=== PATIENT | female | born 1935 | race Hispanic/Latino ===

== ENCOUNTER 2017-06-17 20:00 | Inpatient (IN) | payer MEDICARE, BC ==
[2017-06-17 20:08] VITALS: BMI 26.3
[2017-06-17] MEDS ORDERED: TDAP Vaccine 0.5 mL Syr IM ONE (20:37)
--- NOTE | 2017-06-17 20:39 | ED PDOC ---
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 Patient stated she was picking up toys from the floor, when she tripped and fell down on concrete floor. Patient denies other complains.. Denies LOC, sob, cp, abdominal pain, dizziness, diplopia, KAY, dysarthria, dysphagia, weakness, paresthesias, or abnormal gait Time/Duration: Prior to Arrival Context: Home Past Medical History - Provider Review Nursing Documentation Reviewed: Yes - Cardiac Hx Hypertension: Yes Hx Pacemaker: No - Pulmonary Hx Respiratory Disorders: No - Neurological Hx Paralysis: No - HEENT Hx HEENT Disorder: No - Renal Hx Renal Disorder: No - Endocrine/Metabolic Hx Hypothyroidism: Yes - Hematological/Oncological Hx Blood Transfusions: No - Integumentary Hx Dermatological Disorder: No - Musculoskeletal/Rheumatological Hx Musculoskeletal Disorders: No - Gastrointestinal Hx Gastrointestinal Disorders: No - Genitourinary/Gynecological Hx Genitourinary Disorders: No - Psychiatric Hx Emotional Abuse: No Hx Physical Abuse: No Hx Substance Use: No - Anesthesia Hx Anesthesia Reactions: No Hx Malignant Hyperthermia: No - Suicidal Assessment Feels Threatened In Home Enviroment: No Family/Social History - Physician Review Nursing Documentation Reviewed: Yes Family/Social History: Other (non-contributory) Smoking Status: Never Smoked Hx Alcohol Use: No Hx Substance Use: No Allergies/Home Meds Allergies/Adverse Reactions: Allergies Penicillins Allergy (Verified 06/17/17 20:09) ITCHING Sulfa (Sulfonamide Antibiotics) Allergy (Verified 06/17/17 20:09) RASH Home Medications: Home Meds Medication Instructions Recorded Confirmed Ezetimibe [Zetia] 10 mg PO DAILY 09/22/14 06/17/17 Levothyroxine [Synthroid] 75 mcg PO DAILY 09/22/14 06/17/17 Losartan/Hydrochlorothiazide 1 tab PO DAILY 09/22/14 06/17/17 [Losartan-Hctz 50-12.5 mg Tab] Review of Systems - Review of Systems Constitutional: Normal. absent: Fatigue, Weight Change, Fevers Eyes: Normal. absent: Vision Changes, Photophobia, Eye Pain ENT: Normal Respiratory: Normal. absent: SOB, Cough Cardiovascular: Normal. absent: Chest Pain, Palpitations, Edema, Calf Pain, HUITRON , Orthopnea, Syncope Gastrointestinal: Normal. absent: Abdominal Pain, Nausea, Vomiting Genitourinary Female: Normal. absent: Dysuria, Frequency, Hematuria Musculoskeletal: Normal Skin: Laceration (Forehead laceration, head trauma) Neurological: Normal. absent: Headache, Dizziness, Focal Weakness, Gait Changes , Speech Changes, Facial Droop, Disequilibrium, Seizure Endocrine: Normal Hemo/Lymphatic: Normal Psychiatric: Normal Physical Exam Vital Signs Temp Pulse Resp BP Pulse Ox 06/17/17 22:12 100 H 20 179/89 H 99 06/17/17 20:10 98.6 F 98 H 20 204/74 H 99 Temperature: Afebrile Blood Pressure: Normal Pulse: Regular Respiratory Rate: Normal Appearance: Positive for: Well-Appearing, Non-Toxic, Comfortable Pain Distress: None Mental Status: Positive for: Alert and Oriented X 3 - Systems Exam Head: Present: Normocephalic, Laceration ((+) right forehead laceration, irregular, stellar shape, approx 5 cm), Other (no raccoon sign. No mcghee sign) Pupils: Present: PERRL, Other (no hyphema) Extroacular Muscles: Present: EOMI. No: Entrapment Conjunctiva: Present: Normal Ears: Present: Normal, NORMAL TM, Normal Canal, Other (no hemotympanum). No: Erythema, TM Bulging, Fluid, TM Perf Mouth: Present: Moist Mucous Membranes Pharnyx: Present: Normal. No: ERYTHEMA, EXUDATE Nose (External): Present: Atraumatic Nose (Internal): Present: Normal Inspection Neck: Present: Normal Range of Motion Respiratory/Chest: Present: Clear to Auscultation, Good Air Exchange. No: Respiratory Distress, Accessory Muscle Use, Tender to Palpation Cardiovascular: Present: Regular Rate and Rhythm, Normal S1, S2. No: Murmurs Abdomen: Present: Normal Bowel Sounds. No: Tenderness, Distention, Peritoneal Signs Back: Present: Normal Inspection Upper Extremity: Present: Normal Inspection, Normal ROM, NORMAL PULSES, Neurovascularly Intact, Capillary Refill < 2s. No: Cyanosis, Edema Lower Extremity: Present: Normal Inspection, NORMAL PULSES, Normal ROM, Capillary Refill < 2 s. No: Edema, CALF TENDERNESS Neurological: Present: GCS=15, CN II-XII Intact, Speech Normal, Motor Func Grossly Intact, Normal Sensory Function, Normal Cerebellar Funct, Gait Normal, Memory Normal Skin: Present: Warm, Dry, Normal Color. No: Rashes Psychiatric: Present: Alert, Oriented x 3, Normal Insight, Normal Concentration Medical Decision Making ED Course and Treatment: 06/17/17 21:[address] Davis covering for Dr. Zambrano regarding CT scan demonstrating small bleed She recommended to call Neurosurgery, and Dr. Steve. She agrees with observation for Telemetry 06/17/17 22:[address] Neal Neuro surgeon. He stated he looked at the images and he stated patient does not need neurosurgery intervention 06/17/17 22:15 Dr. Davis called me back. She stated she spoke with Dr. Steve. She is recommending ICU admission with Neuro check as protocol. I spoke with Dr. Garcia regarding CT scan, and Dr. Davis recommendation. He agrees with ICU admission. Re-evaluation Time: 21:59 Reassessment Condition: Re-examined, Improving,but remains with symptoms - RAD Interpretation Narrative RAD Interpretations (Text): 06/17/17 22:32 [facility] Division of Radiology [address] [place] [address] Tel. no. Patient Name: ERAN DELAROSA Pt. Address: [address] [place] [address] Rec #: [id number] [place] [address]: Chayito Forte PA-C Pt Order Location: ED : 1935 Female Age: 82 Order #: [id number] Reason for exam: head injury CT Scan HEAD W/O CONTRAST Exam Date: 06/17/17 This imaging exam was performed at [facility] EXAM: CT Head Without Intravenous Contrast CLINICAL HISTORY: 82 years old, female; Injury or trauma; Fall; Initial encounter; Concussion / head injury TECHNIQUE: Axial computed tomography images of the head/brain without intravenous contrast. All CT scans at this facility use one or more dose reduction techniques, viz.: automated exposure control; ma/kV adjustment per patient size (including targeted exams where dose is matched to indication; i.e. head); or iterative reconstruction technique. COMPARISON: No relevant prior studies available. FINDINGS: Brain: Mild atrophy. Small subarachnoid hemorrhage along LEFT frontal region. No mass. Few scattered foci of decreased attenuation within periventricular/subcortical white matter. No definite edema. Midline shift: None. Ventricles: No hydrocephalus. Bones/joints: No acute fracture. Soft tissues: RIGHT frontal soft tissue swelling. Vasculature: Atherosclerotic disease of intracranial arteries. Sinuses: No acute sinusitis. Mastoid air cells: No mastoid effusion. Orbits: Unremarkable as visualized. IMPRESSION: 1. Intracranial hemorrhage as above. 2. Nonspecific white matter changes. 3. Incidental/non-acute findings are described above. Dictated By: Jason Mccartney MD Dictated Date/Time: 06/17/172132 Signed By: Jason Mccartney MD Date Signed: 2132 Transcribed By: CHARLES Transcribe Date/Time : 06/17/172132 [id number] Radiology Orders: 06/17/17 20:37 HEAD W/O CONTRAST [CT] Stat - Medication Orders Current Medication Orders: Discontinued Medications Clindamycin HCl (Cleocin) 300 mg PO STAT STA PRN Reason: Protocol Stop: 06/17/17 21:37 Last Admin: 06/17/17 21:48 Dose: 300 mg Ezetimibe (Zetia) 10 mg PO DAILY [facility] Last Admin: 06/18/17 10:40 Dose: 10 mg Famotidine (Pepcid) 20 mg PO 1000,2200 [facility] Last Admin: 06/18/17 21:55 Dose: 20 mg Hydralazine HCl (Apresoline) 10 mg IVP Q6 PRN PRN Reason: Systolic Blood Pressure Hydrochlorothiazide (Microzide) 12.5 mg PO DAILY [facility] Levothyroxine Sodium (Synthroid) 75 mcg PO DAILY [facility] Last Admin: 06/18/17 10:40 Dose: 75 mcg Losartan Potassium (Cozaar) 50 mg PO DAILY [facility] Tetanus/Reduced Diphtheria/Acell Pertussis (Boostrix Vaccine Inj) 0.5 ml IM .ONCE ONE Stop: 06/17/17 20:38 Last Admin: 06/17/17 21:38 Dose: 0.5 ml [facility] Immunization Data Document 06/17/17 21:38 OCS (Rec: 06/17/17 21:38 [facility]-[id number]) Immunization Data Vaccine Lot Number [id number] Vaccine Expiration Date 05/31/19 - Procedure PROCEDURE NOTE (Text): 06/17/17 21:36 PROCEDURE: LACERATION REPAIR Performed by the emergency provider Location: right forehead Length: 3.5 cm Description: irregular wound edges, no foreign bodies} Distal CMS: Normal. No deficits. Neurovascularly intact. Anesthesia: Lidocaine 1% with Epi, approx. 1 cc Preparation: The wound was cleaned with NS and Betadyne. The area was prepped and draped in the usual sterile fashion. Exploration: The wound was explored and no foreign bodies were found. Procedure: The wound was closed with Chromic Gut, 5-0 interrupted. There was good approximation. In total, 7 sutures were used. Post-Procedure: Good closure and hemostasis. The patient tolerated the procedure well and there were no complications. CSM remains intact. Post procedure dressing applied. NIHSS Scale ([place]) Time Performed: 21:51 - How Severe is the Stoke Baseline Level of Consciousness: 0=Alert LOC to Questions: 0=Both comments correct LOC to commands: 0=Obeys both correctly Best Gaze: 0=Normal Visual: 0=No visual loss Facial: 0=Normal Motor Arm - Left: 0=No drift Motor Arm - Right: 0=No drift Motor Leg - Left: 0=No drift Motor Leg - Right: 0=No drift Limb Ataxia: 0=Absent Sensory: 0=Normal Best Language: 0=No aphasia Dysarthia: 0=Normal articulation Extinction & Inattention (Neglect): 0=Normal, no object Score: 0 Risk Level: No Stroke Risk Disposition/Present on Arrival - Present on Arrival Any Indicators Present on Arrival: No History of DVT/PE: No History of Uncontrolled Diabetes: No Urinary Catheter: No History of Decub. Ulcer: No History Surgical Site Infection Following: None - Disposition Have Diagnosis and Disposition been Completed?: Yes Diagnosis: Traumatic injury of head, Facial laceration, Traumatic hematoma of forehead, Traumatic subarachnoid hemorrhage Disposition: HOSPITALIZED Disposition Time: 22:12 Patient Plan: Discharge Condition: GOOD
--- NOTE | 2017-06-17 21:33 | CT ---
EXAM: CT Head Without Intravenous Contrast CLINICAL HISTORY: 82 years old, female; Injury or trauma; Fall; Initial encounter; Concussion / head injury TECHNIQUE: Axial computed tomography images of the head/brain without intravenous contrast. All CT scans at this facility use one or more dose reduction techniques, viz.: automated exposure control; ma/kV adjustment per patient size (including targeted exams where dose is matched to indication; i.e. head); or iterative reconstruction technique. COMPARISON: No relevant prior studies available. FINDINGS: Brain: Mild atrophy. Small subarachnoid hemorrhage along LEFT frontal region. No mass. Few scattered foci of decreased attenuation within periventricular/subcortical white matter. No definite edema. Midline shift: None. Ventricles: No hydrocephalus. Bones/joints: No acute fracture. Soft tissues: RIGHT frontal soft tissue swelling. Vasculature: Atherosclerotic disease of intracranial arteries. Sinuses: No acute sinusitis. Mastoid air cells: No mastoid effusion. Orbits: Unremarkable as visualized. IMPRESSION: 1. Intracranial hemorrhage as above. 2. Nonspecific white matter changes. 3. Incidental/non-acute findings are described above.
--- NOTE | 2017-06-17 22:58 | CP.PCM.CON ---
<Namia Bass - Last Filed: 06/18/17 00:18> History of Present Illness - History of Present Illness History of Present Illness: ICU Consult Note Reason for consult: intracranial bleed This is an 82Y F with PMH HTN, HLD and hypothyroidism who came to ED for fall. Patient reports she was putting away her great-granddaughter's toys in her garage where she then stumbled and fell forward. She hit the R side of her forehead on the concrete. She did not lose consciousness and her neighbor called the ambulance right away. At the time, patient denies any vision changes , seizure like activity, tongue biting, dizziness, headache, numbness/tingling or weakness. She was found to have a 3.5cm laceration in the ED on her R forehead which was repaired. Her head CT showed small L frontal subarachnoid hemorrhage. Patient denies CP, SOB, n/v/d, fever, chills, pain, dysuria or hematuria. PMH: HTN, HLD and hypothyroidism PSH: R shoulder arthroscopy Home meds: Zetia, HCTZ, Losartan, Synthroid, ASA All: Penicillin- itching, Sulfa- rash SH: Denies tobacco, EtOH or drug use. Lives with and takes care of herself. Does not need walker and is able to drive FH: non-contributory PMD: Dr. Zambarno Review of Systems - Constitutional Constitutional: absent: Chills, Fever - EENT Eyes: absent: Change in Vision, Loss of Vision Ears: absent: Disequilibrium, Dizziness Nose/Mouth/Throat: absent: Dysphagia, Odynophagia - Cardiovascular Cardiovascular: absent: Chest Pain, Dyspnea, Leg Edema, Syncope - Respiratory Respiratory: absent: Cough, Dyspnea - Gastrointestinal Gastrointestinal: absent: Abdominal Pain, Change in Bowel Habits - Genitourinary Genitourinary: absent: Change in Urinary Stream, Dysuria, Hematuria - Musculoskeletal Musculoskeletal: absent: Arthralgias, Myalgias, Neck Pain, Numbness, Tingling - Integumentary Integumentary: absent: Change in Hair, Change in Nails - Neurological Neurological: absent: Confusion, Dizziness, Numbness, Focal Weakness, Frequent Falls, Sensory Deficit, Syncope, Tremor, Weakness - Psychiatric Psychiatric: absent: Anxiety, Depression Past Patient History - Past Social History Smoking Status: Never Smoked Alcohol: None Drugs: Denies Home Situation {Lives}: With Family - CARDIAC Hx Hypertension: Yes Hx Pacemaker: No - PULMONARY Hx Respiratory Disorders: No - NEUROLOGICAL Hx Paralysis: No - HEENT Hx HEENT Problems: No - RENAL Hx Chronic Kidney Disease: No - ENDOCRINE/METABOLIC Hx Hypothyroidism: Yes - HEMATOLOGICAL/ONCOLOGICAL Hx Blood Transfusions: No - INTEGUMENTARY Hx Dermatological Problems: No - MUSCULOSKELETAL/RHEUMATOLOGICAL Hx Musculoskeletal Disorders: No - GASTROINTESTINAL Hx Gastrointestinal Disorders: No - GENITOURINARY/GYNECOLOGICAL Hx Genitourinary Disorders: No - PSYCHIATRIC Hx Emotional Abuse: No Hx Physical Abuse: No Hx Substance Use: No - SURGICAL HISTORY Hx Surgeries: Yes - ANESTHESIA Hx Anesthesia Reactions: No Hx Malignant Hyperthermia: No Meds Allergies/Adverse Reactions: Allergies Allergy/AdvReac Type Severity Reaction Status Date / Time Penicillins Allergy ITCHING Verified 06/17/17 20:09 Sulfa (Sulfonamide Allergy RASH Verified 06/17/17 20:09 Antibiotics) - Medications Medications: Current Medications Ezetimibe (Zetia) 10 mg PO DAILY [facility] Hydralazine HCl (Apresoline) 10 mg IVP Q6 PRN PRN Reason: Systolic Blood Pressure Hydrochlorothiazide (Microzide) 12.5 mg PO DAILY [facility] Levothyroxine Sodium (Synthroid) 75 mcg PO DAILY I[facility] Losartan Potassium (Cozaar) 50 mg PO DAILY I[facility] Physical Exam - Constitutional Appears: No Acute Distress - Head Exam Head Exam: NORMOCEPHALIC Additional comments: R forehead laceration with sutures in place- clean and dry with underlying hematoma - Eye Exam Eye Exam: EOMI, Normal appearance, PERRL Pupil Exam: NORMAL ACCOMODATION, PERRL - ENT Exam ENT Exam: Mucous Membranes Moist - Neck Exam Neck exam: Positive for: Normal Inspection - Respiratory Exam Respiratory Exam: Clear to Auscultation Bilateral, NORMAL BREATHING PATTERN. absent: Rales, Rhonchi, Wheezes - Cardiovascular Exam Cardiovascular Exam: REGULAR RHYTHM, +S1, +S2. absent: Gallop, Rubs, Systolic Murmur - GI/Abdominal Exam GI & Abdominal Exam: Normal Bowel Sounds, Soft. absent: Guarding, Hernia, Rebound, Rigid, Tenderness - Extremities Exam Extremities exam: Positive for: normal inspection. Negative for: calf tenderness, pedal edema - Neurological Exam Neurological exam: Alert, CN II-XII Intact, Normal Gait, Oriented x3 - Psychiatric Exam Psychiatric exam: Normal Affect, Normal Mood - Skin Skin Exam: Dry, Erythema (on R forehead ), Normal Color, Warm Results - Vital Signs Recent Vital Signs: Last Vital Signs Temp 98.6 F 06/17/17 20:10 Pulse 100 H 06/17/17 22:12 Resp 20 06/17/17 22:12 BP 179/89 H 06/17/17 22:12 Pulse Ox 99 06/17/17 22:12 - Labs Result Diagrams: 06/17/17 23:14 06/17/17 23:14 Assessment & Plan - Assessment and Plan (Free Text) Assessment: This is an 82Y F with PMH HTN, HLD and hypothyroidism who came to ED for mechanical fall found to have small L frontal subarachnoid hemorrhage. Plan: Neuro: Pt neurologically stable at this time Neuro consulted Neurosurgery consulted Neuro checks Hold anticoagulants Seizure precaution CV: Maintain BP in 160s Hydralazine prn SBP>180 Hold home antihypertensives Resp: Pt comfortably on room air Maintain SpO2>90% GI: Heart healthy Diet Nephro: Will continue to monitor electrolytes and replace as needed Heme: Hgb stable - will continue to monitor ID: Afebrile, no leukocytosis U/A pending Endo: Maintain euglycemia GI ppx: Pepcid DVT ppx: SCDs Case seen, discussed and reviewed with attending. Memo Bass PGY2 - Date & Time Date: 06/18/17 Time: 00:41 <Remy Garcia Q - Last Filed: 06/18/17 03:25> Meds - Medications Medications: Current Medications Ezetimibe (Zetia) 10 mg PO DAILY [facility] Famotidine (Pepcid) 20 mg PO 1000,2200 [facility] Hydralazine HCl (Apresoline) 10 mg IVP Q6 PRN PRN Reason: Systolic Blood Pressure Hydrochlorothiazide (Microzide) 12.5 mg PO DAILY [facility] Levothyroxine Sodium (Synthroid) 75 mcg PO DAILY [facility] Losartan Potassium (Cozaar) 50 mg PO DAILY I[facility] Results - Vital Signs Recent Vital Signs: Last Vital Signs Temp 98.0 F 06/18/17 00:15 Pulse 93 H 06/18/17 00:15 Resp 21 06/18/17 00:15 BP 157/76 H 06/18/17 00:15 Pulse Ox 99 06/17/17 22:12 - Labs Result Diagrams: 06/17/17 23:14 06/17/17 23:14 Labs: Laboratory Results - last 24 hr 06/17/17 06/17/17 06/17/17 23:14 23:14 23:14 WBC 11.0 D RBC 4.40 Hgb 13.7 Hct 39.8 MCV 90.5 MCH 31.1 MCHC 34.4 RDW 13.1 Plt Count 186 MPV 8.7 Gran % 72.5 H Lymph % (Auto) 19.6 L Harris % (Auto) 6.3 H Eos % (Auto) 1.1 L Baso % (Auto) 0.5 Gran # 7.97 H Lymph # 2.2 Harris # 0.7 H Eos # 0.1 Baso # 0.06 PT 11.2 INR 1.04 APTT 28.5 Sodium 140 Potassium 3.9 Chloride 103 Carbon Dioxide 27 Anion Gap 14 BUN 16 Creatinine 0.7 Est GFR ( Amer) > 60 Est GFR (Non-Af Amer) > 60 Random Glucose 151 H Calcium 9.8 Total Bilirubin 0.8 AST 53 H ALT 46 Alkaline Phosphatase 197 H Lactate Dehydrogenase 772 H Total Creatine Kinase 244 H CK-MB (CK-2) 2.9 CK-MB (CK-2) % Cancelled Troponin I 0.02 Total Protein 8.4 H Albumin 4.7 Globulin 3.8 Albumin/Globulin Ratio 1.2 Attending/Attestation - Attestation I have personally seen and examined this patient.: Yes I have fully participated in the care of the patient.: Yes I have reviewed all pertinent clinical information: Yes Notes (Text): 06/18/17 03:20 I agree with the above mentioned note and exam by the resident with the addition /exception of the followin82 y/o female presented to the ED after mechanical slip and fall with head trauma. She denies any loss of consciousness, headache, dizziness or light headedness prior to her fall. Patient neurologically intact without any focal defecits in the ED. Neurochecks Maintain SBP around 160; avoid hyper/hypotension case discussed with Dr. Koo in the ED all labs and images available reviewed personally; SAH barely noticeable on initial CT total time of care: 40 minutes
[2017-06-17 23:26] LABS: BASO # 0.06 K/mm3 (0.0-2.0); BASO % 0.5 % (0.0-3.0); EOS # 0.1 (0.0-0.7); EOS % 1.1 % (1.5-5.0); GRAN # 7.97 (1.4-6.5); GRAN % 72.5 % (50.0-68.0); HEMATOCRIT 39.8 % (36.0-48.0); LYMPH # 2.2 (1.2-3.4); LYMPH % 19.6 % (22.0-35.0); MEAN CELL VOLUME 90.5 fl (80.0-105.0); MEAN CORPUSCULAR HEMOGLOBIN 31.1 pg (25.0-35.0); MEAN CORPUSCULAR HGB CONC 34.4 g/dl (31.0-37.0); MEAN PLATELET VOLUME 8.7 fl (7.0-11.0); MONO # 0.7 (0.1-0.6); MONO % 6.3 % (1.0-6.0); RED CELL DISTRIBUTION WIDTH 13.1 % (11.5-14.5)
[2017-06-17 23:33] LABS: ALB/GLOB RATIO 1.2 (1.1-1.8); ALKALINE PHOSPHATASE 197 U/L (38-126); ALT/SGPT 46 U/L (7-56); AST/SGOT 53 U/L (14-36); BILIRUBIN,TOTAL 0.8 mg/dL (0.2-1.3); BLOOD UREA NITROGEN 16 mg/dL (7-21); CALCIUM 9.8 mg/dL (8.4-10.5); CARBON DIOXIDE 27 mmol/L (21-33); CHLORIDE 103 mmol/L (98-107); GFR AFRICAN-AMERICAN > 60; GLUCOSE,RANDOM 151 mg/dL (70-110); INR 1.04 (0.93-1.08); PARTIAL THROMBOPLASTIN TIME 28.5 Seconds (23.7-30.8); POTASSIUM 3.9 mmol/L (3.6-5.0); SODIUM 140 mmol/L (132-148); TOTAL PROTEIN 8.4 g/dL (5.8-8.3)
[2017-06-17 23:44] LABS: TROPONIN I 0.02 ng/mL
--- NOTE | 2017-06-18 08:48 | CARD ---
APPROVED REPORT EKG Measurement Heart [id number] <Conclusion> Normal sinus rhythm Possible septal FL, age unknown, new since 09/29/14 Prolonged QTc
[2017-06-18] MEDS ORDERED: Levothyroxine 75 MCG TAB PO SCH (10:00)
[2017-06-18] MEDS ORDERED: Non Formulary Medication (Losartan/Hydrochlorothiazide [Losartan-Hctz 50-12.5 Mg Tab] 1 TA PO SCH (10:00)
--- NOTE | 2017-06-18 10:53 | CP.CCUPN ---
CCU Subjective - Physician Review Events Since Last Encounter (Free Text): 06/18/17 10:51 No acute events overnight. Mental status intact without deficits CCU Objective - Vital Signs / Intake & Output Vital Signs (Last 4 hours): Vital Signs Temp Pulse Resp BP Pulse Ox 06/18/17 09:00 80 18 151/66 H 96 06/18/17 08:50 88 29 H 98 06/18/17 08:40 80 99 06/18/17 08:30 75 18 96 06/18/17 08:20 79 21 97 06/18/17 08:10 75 14 98 06/18/17 08:00 98.0 F 75 31 H 154/79 H 99 06/18/17 07:50 68 15 96 06/18/17 07:40 73 13 96 06/18/17 07:30 84 23 97 06/18/17 07:20 71 16 97 06/18/17 07:10 65 14 95 06/18/17 07:00 63 16 137/57 L 96 Intake and Output (Last 8hrs): Intake & Output 06/17/17 06/18/17 06/18/17 22:59 06:59 14:59 Weight 162 lb 8 oz Other: # Voids Urine, Voided 2 - Physical Exam Head: Positive for: Normocephalic, Laceration ((+) right forehead laceration, irregular, stellar shape, approx 5 cm), Other (no raccoon sign. No mcghee sign) Pupils: Positive for: PERRL, Other (no hyphema) Extroacular Muscles: Positive for: EOMI. Negative for: Entrapment Conjunctiva: Positive for: Normal Ears: Positive for: Normal, NORMAL TM, Normal Canal, Other (no hemotympanum). Negative for: Erythema, TM Bulging, Fluid, TM Perf Mouth: Positive for: Moist Mucous Membranes Pharnyx: Positive for: Normal. Negative for: ERYTHEMA, EXUDATE Nose (External): Positive for: Atraumatic Nose (Internal): Positive for: Normal Inspection Neck: Positive for: Normal Range of Motion Respiratory/Chest: Positive for: Clear to Auscultation, Good Air Exchange. Negative for: Respiratory Distress, Accessory Muscle Use, Tender to Palpation Cardiovascular: Positive for: Regular Rate and Rhythm, Normal S1, S2. Negative for: Murmurs Abdomen: Positive for: Normal Bowel Sounds. Negative for: Tenderness, Distention, Peritoneal Signs Back: Positive for: Normal Inspection Upper Extremity: Positive for: Normal Inspection, Normal ROM, NORMAL PULSES, Neurovascularly Intact, Capillary Refill < 2s. Negative for: Cyanosis, Edema Lower Extremity: Positive for: Normal Inspection, NORMAL PULSES, Normal ROM, Capillary Refill < 2 s. Negative for: Edema, CALF TENDERNESS Neurological: Positive for: GCS=15, CN II-XII Intact, Speech Normal, Motor Func Grossly Intact, Normal Sensory Function, Normal Cerebellar Funct, Gait Normal, Memory Normal Skin: Positive for: Warm, Dry, Normal Color. Negative for: Rashes Psychiatric: Positive for: Alert, Oriented x 3, Normal Insight, Normal Concentration - Medications Active Medications: Active Medications Generic Name Dose Route Start Last Admin Trade Name Freq PRN Reason Stop Dose Admin Ezetimibe 10 mg 06/18/17 10:00 06/18/17 10:40 Zetia PO 10 mg DAILY IDA Administration Famotidine 20 mg 06/18/17 10:00 06/18/17 10:39 Pepcid PO 20 mg 1000,2200 IDA Administration Hydralazine HCl 10 mg 06/17/17 22:54 Apresoline IVP Q6 PRN Systolic Blood Pressure Hydrochlorothiazide 12.5 mg 06/18/17 10:00 Microzide PO DAILY IDA Levothyroxine Sodium 75 mcg 06/18/17 10:00 06/18/17 10:40 Synthroid PO 75 mcg DAILY IDA Administration Losartan Potassium 50 mg 06/18/17 10:00 Cozaar PO DAILY IDA - Patient Studies Lab Studies: Lab Studies 06/17/17 06/17/17 06/17/17 Range/Units 23:14 23:14 23:14 WBC 11.0 D (4.5-11.0) 10^3/ul RBC 4.40 (3.5-6.1) 10^6/uL Hgb 13.7 (12.0-16.0) g/dL Hct 39.8 (36.0-48.0) % MCV 90.5 (80.0-105.0) fl MCH 31.1 (25.0-35.0) pg MCHC 34.4 (31.0-37.0) g/dl RDW 13.1 (11.5-14.5) % Plt Count 186 (120.0-450.0) 10^3/uL MPV 8.7 (7.0-11.0) fl Gran % 72.5 H (50.0-68.0) % Lymph % (Auto) 19.6 L (22.0-35.0) % Thayer % (Auto) 6.3 H (1.0-6.0) % Eos % (Auto) 1.1 L (1.5-5.0) % Baso % (Auto) 0.5 (0.0-3.0) % Gran # 7.97 H (1.4-6.5) Lymph # 2.2 (1.2-3.4) Thayer # 0.7 H (0.1-0.6) Eos # 0.1 (0.0-0.7) Baso # 0.06 (0.0-2.0) K/mm3 PT 11.2 (9.9-11.8) Seconds INR 1.04 (0.93-1.08) APTT 28.5 (23.7-30.8) Seconds Sodium 140 (132-148) mmol/L Potassium 3.9 (3.6-5.0) mmol/L Chloride 103 (98-107) mmol/L Carbon Dioxide 27 (21-33) mmol/L Anion Gap 14 (10-20) BUN 16 (7-21) mg/dL Creatinine 0.7 (0.5-1.4) mg/dL Est GFR ( Amer) > 60 Est GFR (Non-Af Amer) > 60 Random Glucose 151 H (70-110) mg/dL Calcium 9.8 (8.4-10.5) mg/dL Total Bilirubin 0.8 (0.2-1.3) mg/dL AST 53 H (14-36) U/L ALT 46 (7-56) U/L Alkaline Phosphatase 197 H (38-126) U/L Lactate Dehydrogenase 772 H (333-699) U/L Total Creatine Kinase 244 H (35-230) U/L CK-MB (CK-2) 2.9 (0.0-3.6) ng/mL CK-MB (CK-2) % Cancelled Troponin I 0.02 ng/mL Total Protein 8.4 H (5.8-8.3) g/dL Albumin 4.7 (3.0-4.8) g/dL Globulin 3.8 gm/dL Albumin/Globulin Ratio 1.2 (1.1-1.8) Laboratory Results - last 24 hr 06/17/17 06/17/17 06/17/17 23:14 23:14 23:14 WBC 11.0 D RBC 4.40 Hgb 13.7 Hct 39.8 MCV 90.5 MCH 31.1 MCHC 34.4 RDW 13.1 Plt Count 186 MPV 8.7 Gran % 72.5 H Lymph % (Auto) 19.6 L Thayer % (Auto) 6.3 H Eos % (Auto) 1.1 L Baso % (Auto) 0.5 Gran # 7.97 H Lymph # 2.2 Thayer # 0.7 H Eos # 0.1 Baso # 0.06 PT 11.2 INR 1.04 APTT 28.5 Sodium 140 Potassium 3.9 Chloride 103 Carbon Dioxide 27 Anion Gap 14 BUN 16 Creatinine 0.7 Est GFR ( Amer) > 60 Est GFR (Non-Af Amer) > 60 Random Glucose 151 H Calcium 9.8 Total Bilirubin 0.8 AST 53 H ALT 46 Alkaline Phosphatase 197 H Lactate Dehydrogenase 772 H Total Creatine Kinase 244 H CK-MB (CK-2) 2.9 CK-MB (CK-2) % Cancelled Troponin I 0.02 Total Protein 8.4 H Albumin 4.7 Globulin 3.8 Albumin/Globulin Ratio 1.2 EKG/Cardiology Studies: Cardiology / EKG Studies 06/17/17 22:52 EKG [ELECTROCARDIOGRAM] Stat Comment: Reason For Exam: tachycardia Review of Systems - Review of Systems All systems: reviewed and no additional remarkable complaints except (no headache) Critical Care Progress Note - Nutrition Nutrition: Nutrition Category Date Time Status Heart Healthy Diet [DIET] Diets 06/18/17 Breakfast Ordered Assessment/Plan - Assessment and Plan (Free Text) Assessment: 82 y/o F admitted to ICU overnight for neurochecks. Radiologist suspects possible small SAH on head ct overnight MRi to be done today to confirm suspicion. Neurology consulted. NSG aware. No acute neurological changes. BP WNL. CC time 55 min
--- NOTE | 2017-06-18 12:56 | RAD ---
PROCEDURE: Radiographs of the Right Shoulder HISTORY: Possible hardware, planning for MRI COMPARISON: None available FINDINGS: BONES: No definite fracture. Cannot exclude humeral head fracture on the basis of a single view, however. There is a lucency in the humeral head superiorly, possibly a subchondral cyst or geodes. JOINTS: Glenohumeral osteoarthritis. Acromioclavicular articulation unremarkable. SOFT TISSUES: Normal. OTHER FINDINGS: None. IMPRESSION: Limited examination. Glenohumeral osteoarthritis. Probable subchondral cysts superior humeral head.
--- NOTE | 2017-06-18 13:50 | CP.PCM.CON ---
History of Present Illness - History of Present Illness History of Present Illness: called re radiologist reading ? l f sah appears neg CT even if tiny TSAH is of no clinical significance no reason for hospitalization from nrs standpoint no nrs involvement required Past Patient History - Past Social History Smoking Status: Never Smoked Alcohol: None Drugs: Denies Home Situation {Lives}: With Family - CARDIAC Hx Hypertension: Yes Hx Pacemaker: No - PULMONARY Hx Respiratory Disorders: No - NEUROLOGICAL Hx Paralysis: No - HEENT Hx HEENT Problems: No - RENAL Hx Chronic Kidney Disease: No - ENDOCRINE/METABOLIC Hx Hypothyroidism: Yes - HEMATOLOGICAL/ONCOLOGICAL Hx Blood Transfusions: No - INTEGUMENTARY Hx Dermatological Problems: No - MUSCULOSKELETAL/RHEUMATOLOGICAL Hx Musculoskeletal Disorders: No - GASTROINTESTINAL Hx Gastrointestinal Disorders: No - GENITOURINARY/GYNECOLOGICAL Hx Genitourinary Disorders: No - PSYCHIATRIC Hx Emotional Abuse: No Hx Physical Abuse: No Hx Substance Use: No - SURGICAL HISTORY Hx Surgeries: Yes - ANESTHESIA Hx Anesthesia Reactions: No Hx Malignant Hyperthermia: No Meds Allergies/Adverse Reactions: Allergies Allergy/AdvReac Type Severity Reaction Status Date / Time Penicillins Allergy ITCHING Verified 06/17/17 20:09 Sulfa (Sulfonamide Allergy RASH Verified 06/17/17 20:09 Antibiotics) - Medications Medications: Current Medications Ezetimibe (Zetia) 10 mg PO DAILY [facility] [place] Last Admin: 06/18/17 10:40 Dose: 10 mg Famotidine (Pepcid) 20 mg PO 1000,2200 [facility] [place] Last Admin: 06/18/17 10:39 Dose: 20 mg Hydralazine HCl (Apresoline) 10 mg IVP Q6 PRN PRN Reason: Systolic Blood Pressure Hydrochlorothiazide (Microzide) 12.5 mg PO DAILY [facility] [place] Levothyroxine Sodium (Synthroid) 75 mcg PO DAILY [facility] [place] Last Admin: 06/18/17 10:40 Dose: 75 mcg Losartan Potassium (Cozaar) 50 mg PO DAILY [facility] [place] Results - Vital Signs Recent Vital Signs: Last Vital Signs Temp 98.5 F 06/18/17 12:00 Pulse 75 06/18/17 13:10 Resp 17 06/18/17 13:10 BP 164/118 H 06/18/17 13:00 Pulse Ox 96 06/18/17 13:10 - Labs Result Diagrams: 06/17/17 23:14 06/17/17 23:14 Labs: Laboratory Results - last 24 hr 06/17/17 06/17/17 06/17/17 23:14 23:14 23:14 WBC 11.0 D RBC 4.40 Hgb 13.7 Hct 39.8 MCV 90.5 MCH 31.1 MCHC 34.4 RDW 13.1 Plt Count 186 MPV 8.7 Gran % 72.5 H Lymph % (Auto) 19.6 L [place] % (Auto) 6.3 H Eos % (Auto) 1.1 L Baso % (Auto) 0.5 Gran # 7.97 H Lymph # 2.2 [place] # 0.7 H Eos # 0.1 Baso # 0.06 PT 11.2 INR 1.04 APTT 28.5 Sodium 140 Potassium 3.9 Chloride 103 Carbon Dioxide 27 Anion Gap 14 BUN 16 Creatinine 0.7 Est GFR ( Amer) > 60 Est GFR (Non-Af Amer) > 60 Random Glucose 151 H Calcium 9.8 Total Bilirubin 0.8 AST 53 H ALT 46 Alkaline Phosphatase 197 H Lactate Dehydrogenase 772 H Total Creatine Kinase 244 H CK-MB (CK-2) 2.9 CK-MB (CK-2) % Cancelled Troponin I 0.02 Total Protein 8.4 H Albumin 4.7 Globulin 3.8 Albumin/Globulin Ratio 1.2
--- NOTE | 2017-06-18 14:57 | MRI ---
EXAM: MR Head Without Intravenous Contrast CLINICAL HISTORY: 82 years old, female; Injury or trauma; Fall; Follow-up exam; Concussion / head injury and swelling (edema); Consciousness not specified; Additional info: Evaluation of sah TECHNIQUE: Magnetic resonance images of the head/brain without intravenous contrast in multiple planes. COMPARISON: CT - HEAD W/O CONTRAST 06/17/2017 8:52:39 PM FINDINGS: Brain: There is minimal left frontoparietal subarachnoid hemorrhage, described previously. There are scattered nonspecific foci of high signal abnormality in the abraham radiata and centrum semiovale. These are best seen on the flair images. These foci may represent areas of gliosis, demyelination, and/or chronic ischemic change. Ventricles: Unremarkable. No ventriculomegaly. Bones/joints: There is right frontal scalp swelling. There is no underlying fracture. Sinuses: Unremarkable as visualized. No acute sinusitis. Mastoid air cells: Unremarkable as visualized. No mastoid effusion. Orbits: Unremarkable as visualized. IMPRESSION: 1. There is minimal left frontoparietal subarachnoid hemorrhage, described previously. 2. There are scattered nonspecific foci of high signal abnormality in the abraham radiata and centrum semiovale. These are best seen on the flair images. These foci may represent areas of gliosis, demyelination, and/or chronic ischemic change.
--- NOTE | 2017-06-19 00:21 | CP.PCM.HP ---
History of Present Illness - History of Present Illness History of Present Illness: Patient is a 82 year old female presented to ED with history of fall at home. She tripped. CT head showed small left frontoparietal bleed. Denies any headache. No seizure. No chest pain. No change in mental status. Present on Admission - Present on Admission Any Indicators Present on Admission: No Review of Systems - Constitutional Constitutional: As Per HPI - EENT Eyes: absent: As Per HPI, Blind Spots, Blurred Vision, Change in Vision, Decreased Night Vision, Diplopia, Discharge, Dry Eye, Exophthalmos, Floaters, Irritation, Itchy Eyes, Loss of Peripheral Vision, Pain, Photophobia, Requires Corrective Lenses, Sees Flashes, Spots in Vision, Tunnel Vision, Other Visual Disturbances, Loss of Vision, Other Ears: absent: As Per HPI, Decreased Hearing, Ear Discharge, Ear Pain, Tinnitus, Abnormal Hearing, Disequilibrium, Dizziness, Other Nose/Mouth/Throat: absent: As Per HPI, Epistaxis, Nasal Congestion, Nasal Discharge, Nasal Obstruction, Nasal Trauma, Nose Pain, Post Nasal Drip, Sinus Pain, Sinus Pressure, Bleeding Gums, Change in Voice, Dental Pain, Dry Mouth, Dysphagia, Halitosis, Hoarsness, Lip Swelling, Mouth Lesions, Mouth Pain, Odynophagia, Sore Throat, Throat Swelling, Tongue Swelling, Facial Pain, Neck Pain, Neck Mass, Other - Breasts Breasts: absent: As Per HPI, Change in Shape, Mass, Pain, Nipple Discharge, Nipple Inversion, Skin Changes, Swelling, Other - Cardiovascular Cardiovascular: absent: As Per HPI, Acrocyanosis, Chest Pain, Chest Pain at Rest , Chest Pain with Activity, Claudication, Diaphoresis, Dyspnea, Dyspnea on Exertion, Edema, Irregular Heart Rhythm, Pain Radiating to Arm/Neck/Jaw, Leg Edema, Leg Ulcers, Lightheadedness, Orthopnea, Palpitations, Paroxysmal Nocturnal Dyspnea, Pedal Edema, Radiating Pain, Rapid Heart Rate, Slow Heart Rate, Syncope, Other - Gastrointestinal Gastrointestinal: absent: As Per HPI, Abdominal Pain, Belching, Bloating, Change in Bowel Habits, Change in Stool Character, Coffee Ground Emesis, Constipation, Cramping, Diarrhea, Dyspepsia, Dysphagia, Early Satiety, Excessive Flatus, Fecal Incontinence, Heartburn, Hematemesis, Hematochezia, Loose Stools, Melena, Nausea, Odynophagia, Temesmus, Vomiting, Other - Genitourinary Genitourinary: absent: As Per HPI, Change in Urinary Stream, Difficulty Urinating, Dysuria, Flank Pain, Hematuria, Pyuria, Nocturia, Urinary Incontinence, Urinary Frequency, Urinary Hesitance, Urinary Urgency, Voiding Freq/Small Amts, Freq UTI, Hx Renal/Bladder Calculi, Hx /Renal Surgery, Bladder Distension, Other - Musculoskeletal Musculoskeletal: absent: As Per HPI, Abnormal Gait, Arthralgias, Atrophy, Back Pain, Deformity, Joint Swelling, Limited Range of Motion, Loss of Height, Muscle Cramps, Muscle Weakness, Myalgias, Neck Pain, Numbness, Radiating Pain into Limb, Stiffness, Tingling, Other - Integumentary Integumentary: absent: As Per HPI, Acne, Alopecia, Bleeding Lesions, Change in Hair, Change in Nails, Change in Pigmentation, Changing Lesions, Dry Skin, Erythema, Furuncle, Hirsutism, Lesions, New Lesions, Non-Healing Lesions, Photosensitivity, Pruritus, Rash, Skin Pain, Skin Ulcer, Sores, Striae, Swelling , Unusual Bruising, Wounds, Jaundice, Other - Neurological Neurological: absent: As Per HPI, Abnormal Gait, Abnormal Hearing, Abnormal Movements, Abnormal Speech, Behavioral Changes, Burning Sensations, Confusion, Convulsions, Disequilibrium, Dizziness, Numbness, Focal Weakness, Frequent Falls , Headaches, Lack of Coordination, Loss of Vision, Memory Loss, Paresthesias, Radicular Pain, Restless Legs, Sensory Deficit, Syncope, Tingling, Tremor, Vertigo, Weakness, Other Visual Disturbances, Other - Psychiatric Psychiatric: absent: As Per HPI, Abnormal Sleep Pattern, Anhedonia, Anxiety, Auditory Hallucinations, Behavioral Changes, Change in Appetite, Change in Libido, Confusion, Depression, Difficulty Concentrating, Hallucinations, Homicidal Ideation, Hopelessness, Irritability, Memory Loss, Mood Swings, Panic Attacks, Paranoia, Suicidal Ideation, Visual Hallucinations, Tactile Hallucinations, Other - Endocrine Endocrine: absent: As Per HPI, Change in Body Appearance, Change in Libido, Cold Intolorance, Deepening of Voice, Excessive Sweating, Fatigue, Flushing, Heat Intolorance, Increase in Ring/Shoe/Hat Size, Palpitations, Polydipsia, Polyphagia, Polyuria, Other - Hematologic/Lymphatic Hematologic: absent: As Per HPI, Easy Bleeding, Easy Bruising, Lymphadenopathy, Other Past Patient History - Past Social History Smoking Status: Never Smoked Alcohol: None Drugs: Denies Home Situation {Lives}: With Family - CARDIAC Hx Hypertension: Yes Hx Pacemaker: No - PULMONARY Hx Respiratory Disorders: No - NEUROLOGICAL Hx Paralysis: No - HEENT Hx HEENT Problems: No - RENAL Hx Chronic Kidney Disease: No - ENDOCRINE/METABOLIC Hx Hypothyroidism: Yes - HEMATOLOGICAL/ONCOLOGICAL Hx Blood Transfusions: No - INTEGUMENTARY Hx Dermatological Problems: No - MUSCULOSKELETAL/RHEUMATOLOGICAL Hx Musculoskeletal Disorders: No - GASTROINTESTINAL Hx Gastrointestinal Disorders: No - GENITOURINARY/GYNECOLOGICAL Hx Genitourinary Disorders: No - PSYCHIATRIC Hx Emotional Abuse: No Hx Physical Abuse: No Hx Substance Use: No - SURGICAL HISTORY Hx Surgeries: Yes - ANESTHESIA Hx Anesthesia Reactions: No Hx Malignant Hyperthermia: No Meds Allergies/Adverse Reactions: Allergies Allergy/AdvReac Type Severity Reaction Status Date / Time Penicillins Allergy ITCHING Verified 06/17/17 20:09 Sulfa (Sulfonamide Allergy RASH Verified 06/17/17 20:09 Antibiotics) Physical Exam - Constitutional Appears: Well, Non-toxic - Head Exam Head Exam: ATRAUMATIC, NORMAL INSPECTION, NORMOCEPHALIC - Eye Exam Eye Exam: Normal appearance Pupil Exam: NORMAL ACCOMODATION - ENT Exam ENT Exam: Mucous Membranes Moist - Neck Exam Neck exam: Positive for: Normal Inspection - Respiratory Exam Respiratory Exam: Clear to Auscultation Bilateral, NORMAL BREATHING PATTERN - Cardiovascular Exam Cardiovascular Exam: REGULAR RHYTHM, +S1, +S2 - GI/Abdominal Exam GI & Abdominal Exam: Normal Bowel Sounds, Soft - Extremities Exam Extremities exam: Positive for: normal inspection - Back Exam Back exam: NORMAL INSPECTION - Neurological Exam Neurological exam: Alert, CN II-XII Intact, Oriented x3 - Psychiatric Exam Psychiatric exam: Normal Affect - Skin Skin Exam: Normal Color, Warm Results - Vital Signs Recent Vital Signs: Last Vital Signs Temp 98.7 F 06/18/17 16:00 Pulse 71 06/18/17 18:00 Resp 18 06/18/17 18:00 BP 137/58 L 06/18/17 18:00 Pulse Ox 97 06/18/17 18:00 - Labs Result Diagrams: 06/17/17 23:14 06/17/17 23:14 Labs: Laboratory Results - last 24 hr 06/17/17 23:14 CK-MB (CK-2) 2.9 CK-MB (CK-2) % Cancelled Assessment & Plan - Assessment and Plan (Free Text) Assessment: 1. Subarachnoid bleed small. 2. Hypertension 3. Hypothyroidism Plan : MRI of brain done today. small subarachnoid bleed. Neuro and neuro surgical consultation requested. Note reviewed. BP controlled on current meds. She is on hydralazine prn. Synthyroid 75 mgm daily. Discussed with the bedside. - Date & Time Date: 06/18/17 Time: 11:00
[2017-06-19 06:16] LABS: BASO # 0.04 K/mm3 (0.0-2.0); BASO % 0.6 % (0.0-3.0); EOS # 0.2 (0.0-0.7); EOS % 3.6 % (1.5-5.0); GRAN # 3.46 (1.4-6.5); GRAN % 52.1 % (50.0-68.0); HEMATOCRIT 37.6 % (36.0-48.0); LYMPH # 2.3 (1.2-3.4); LYMPH % 34.2 % (22.0-35.0); MEAN CELL VOLUME 92.6 fl (80.0-105.0); MEAN CORPUSCULAR HEMOGLOBIN 30.3 pg (25.0-35.0); MEAN CORPUSCULAR HGB CONC 32.7 g/dl (31.0-37.0); MONO # 0.6 (0.1-0.6); MONO % 9.5 % (1.0-6.0); RED CELL DISTRIBUTION WIDTH 13.3 % (11.5-14.5); WHITE BLOOD COUNT 6.6 10^3/ul (4.5-11.0)
[2017-06-19 06:27] LABS: ALB/GLOB RATIO 1.2 (1.1-1.8); ALKALINE PHOSPHATASE 141 U/L (38-126); ALT/SGPT 41 U/L (7-56); AST/SGOT 41 U/L (14-36); BILIRUBIN,TOTAL 0.8 mg/dL (0.2-1.3); BLOOD UREA NITROGEN 18 mg/dL (7-21); CALCIUM 9.5 mg/dL (8.4-10.5); CARBON DIOXIDE 31 mmol/L (21-33); CHLORIDE 103 mmol/L (98-107); GFR AFRICAN-AMERICAN > 60; GLUCOSE,RANDOM 98 mg/dL (70-110); POTASSIUM 4.8 mmol/L (3.6-5.0); SODIUM 141 mmol/L (132-148); TOTAL PROTEIN 7.1 g/dL (5.8-8.3)
--- NOTE | 2017-06-19 09:18 | CON ---
DATE: HISTORY OF PRESENT ILLNESS: This is an 82-year-old White female with past medical history of hypertension, hypothyroidism. The patient fell in the backyard, did not lose consciousness, had racoon right eye. The patient is able to get up from the floor. Called to evaluate the patient. CAT scan of the head was done, which shows small subarachnoid on the right frontal area. Neurosurgery on the board. ALLERGIES: ALLERGY TO PENICILLIN AND SULFA. HOME MEDICATIONS: Zetia, Synthroid, and losartan. REVIEW OF SYSTEMS: A 10-point review of system was negative. PHYSICAL EXAMINATION: VITAL SIGNS: Blood pressure 179/89. HEENT: Normocephalic and atraumatic. NECK: Supple. NEUROLOGIC: Alert, awake, and oriented x3. No aphasia. Cranial nerves II through XII are tested. Pupils reactive. EOM intact. Visual chopra full. No facial asymmetry. Tongue midline. Motor examination, moves all the extremities equally and spontaneously. Deep tendon reflexes 1+. Both plantars are downgoing. Sensory appears intact. Cerebellar and gait deferred. IMPRESSION: Small subarachnoid hemorrhage and workup in progress. Continue present management. We will follow up. Bertin Steve MD
--- NOTE | 2017-06-19 13:00 | CP.PCM.PN ---
<Naima Bass - Last Filed: 06/19/17 13:04> Subjective - Date & Time of Evaluation Date of Evaluation: 06/19/17 Time of Evaluation: 12:56 - Subjective Subjective: Neurology Progress Note for Memo Wetzel PGY2 Patient seen and examined at bedside. As per nursing, there were no acute overnight events. Patient feels well today. She is able to ambulate. She denies vision changes, headache, CP, SOB, weakness, numbness/tingling, n/v/d, or dizziness. Patient reports she would like to go home at this time. Objective - Vital Signs/Intake and Output Vital Signs (last 24 hours): Temp Pulse Resp BP Pulse Ox 98.4 F 67 14 137/68 96 06/19/17 03:58 06/19/17 08:50 06/19/17 08:50 06/19/17 08:00 06/19/17 08:50 Intake and Output: 06/19/17 06/19/17 06:59 18:59 Intake Total 120 Output Total 250 Balance -130 - Medications Medications: Current Medications Ezetimibe (Zetia) 10 mg PO DAILY [facility] Last Admin: 06/18/17 10:40 Dose: 10 mg Famotidine (Pepcid) 20 mg PO 1000,2200 [facility] Last Admin: 06/18/17 21:55 Dose: 20 mg Hydralazine HCl (Apresoline) 10 mg IVP Q6 PRN PRN Reason: Systolic Blood Pressure Hydrochlorothiazide (Microzide) 12.5 mg PO DAILY [facility] Levothyroxine Sodium (Synthroid) 75 mcg PO DAILY [facility] Last Admin: 06/18/17 10:40 Dose: 75 mcg Losartan Potassium (Cozaar) 50 mg PO DAILY [facility] - Labs Labs: 06/19/17 05:50 06/19/17 05:50 PT 11.2 Seconds (9.9-11.8) 06/17/17 23:14 INR 1.04 (0.93-1.08) 06/17/17 23:14 APTT 28.5 Seconds (23.7-30.8) 06/17/17 23:14 - Constitutional Appears: No Acute Distress - Head Exam Head Exam: NORMOCEPHALIC Additional comments: 3.5 cm laceration with repair- clean and dry - Eye Exam Eye Exam: EOMI, PERRL Pupil Exam: NORMAL ACCOMODATION, PERRL Additional comments: R periorbital hematoma - ENT Exam ENT Exam: Mucous Membranes Moist - Neck Exam Neck Exam: Full ROM - Respiratory Exam Respiratory Exam: Clear to Ausculation Bilateral, NORMAL BREATHING PATTERN. absent: Rales, Rhonchi, Wheezes, Stridor - Cardiovascular Exam Cardiovascular Exam: REGULAR RHYTHM, +S1, +S2. absent: Gallop, Rubs, Murmur - GI/Abdominal Exam GI & Abdominal Exam: Soft, Normal Bowel Sounds. absent: Rigid, Tenderness, Mass , Rebound - Extremities Exam Extremities Exam: Normal Inspection. absent: Calf Tenderness, Pedal Edema - Neurological Exam Neurological Exam: Alert, Awake, CN II-XII Intact, Normal Gait, Oriented x3 Neuro motor strength exam: Left Upper Extremity: 5, Right Upper Extremity: 5, Left Lower Extremity: 5, Right Lower Extremity: 5 - Psychiatric Exam Psychiatric exam: Normal Affect, Normal Mood - Skin Skin Exam: Dry, Intact, Normal Color, Warm Assessment and Plan - Assessment and Plan (Free Text) Assessment: This is an 82Y F with PMH HTN, HLD and hypothyroidism found to have L small subarachnoid hemorrhage seen on CT and MRI secondary to mechanical fall. Patient was evaluated by neurosurgery who stated no intervention at this time. Patient does not have any neurological deficits. Plan: - Continue to monitor BP - Hold ASA for 3 weeks. Patient is neurologically stable. She is stable for discharge at this time. Follow up with Dr. Steve as outpatient. Thank you for this consultation. Please re-consult if needed. Case seen, discussed and reviewed with attending, Dr. Steve. Memo Bass PGY2 <Thomas Steve - Last Filed: 06/19/17 14:14> Objective - Vital Signs/Intake and Output Vital Signs (last 24 hours): Temp Pulse Resp BP Pulse Ox 98.4 F 67 14 137/68 96 06/19/17 03:58 06/19/17 08:50 06/19/17 08:50 06/19/17 08:00 06/19/17 08:50 Intake and Output: 06/19/17 06/19/17 06:59 18:59 Intake Total 120 Output Total 250 Balance -130 - Medications Medications: Current Medications Ezetimibe (Zetia) 10 mg PO DAILY [facility] Last Admin: 06/18/17 10:40 Dose: 10 mg Famotidine (Pepcid) 20 mg PO 1000,2200 [facility] Last Admin: 06/18/17 21:55 Dose: 20 mg Hydralazine HCl (Apresoline) 10 mg IVP Q6 PRN PRN Reason: Systolic Blood Pressure Hydrochlorothiazide (Microzide) 12.5 mg PO DAILY [facility] Levothyroxine Sodium (Synthroid) 75 mcg PO DAILY [facility] Last Admin: 06/18/17 10:40 Dose: 75 mcg Losartan Potassium (Cozaar) 50 mg PO DAILY [facility] - Labs Labs: 06/19/17 05:50 06/19/17 05:50 PT 11.2 Seconds (9.9-11.8) 06/17/17 23:14 INR 1.04 (0.93-1.08) 06/17/17 23:14 APTT 28.5 Seconds (23.7-30.8) 06/17/17 23:14 Attending/Attestation - Attestation I have personally seen and examined this patient.: Yes I have fully participated in the care of the patient.: Yes I have reviewed all pertinent clinical information, including history, physical exam and plan: Yes
[2017-06-19 16:19] VITALS: BP 141/73; PULSE 68; RESP 16; TEMP 98.2; O2SAT 98
--- NOTE | 2017-06-19 19:41 | DS ---
HISTORY OF PRESENT ILLNESS: The patient is an 82 years old, known to me from office practice. The patient states she was playing with her granddaughter and she went out in the backyard to put the bike away and she tripped on a little stone and hit her right face. Denies any loss of consciousness. No nausea or vomiting. No weakness. No numbness. Doing well and anxious to go home. PHYSICAL EXAMINATION: VITAL SIGNS: She is afebrile, pulse 67, respirations 14, blood pressure 137/68. LUNGS: Bilateral fair airflow. No rhonchi or crackles. HEART: S1 and S2 audible. ABDOMEN: Soft and nontender. No rebound. No guarding. NEUROLOGIC: The patient awake and alert, communicative and ambulatory. She has right periorbital ecchymosis. LABORATORY EXAMINATION: WBC 6.6, hemoglobin 12, hematocrit 37, platelets 177. Chemistry: Sodium 141, potassium 4.8, chloride 103, CO2 of 31, BUN 18, creatinine 0.9, blood sugar of 98, and AST 41. ASSESSMENT: 1. Status post fall. 2. Right periorbital ecchymosis. 3. Left frontoparietal subarachnoid hemorrhage. 4. Hypertension. 5. Borderline diabetes. PLAN: The patient is clinically stable. Discussed with Neurology. We will make a discharge plan. The patient will be discharged today. She will follow up in the office in a week. Manuel Zambrano MD
== END 2017-06-19 15:00 | disposition home or self-care (01) | DRG 84 ==
LOC: ED 20:00 → ERH 22:29 → CCU 23:39 → 5RSO 06-19 09:13
PROVIDERS: ADMIT Internal Medicine Medical Oncology; ATTEND Internal Medicine
PROC: 3E0234Z Introduction of Serum, Toxoid and Vaccine into Muscle, Percutaneous Approach (ICD-10-PCS; principal; 2017-06-17)
DX: S06.6X9A Traumatic subarachnoid hemorrhage with loss of consciousness of unspecified duration, initial encounter (principal); I10 Essential (primary) hypertension; S01.81XA Laceration without foreign body of other part of head, initial encounter; S00.11XA Contusion of right eyelid and periocular area, initial encounter; E03.9 Hypothyroidism, unspecified; W01.0XXA Fall on same level from slipping, tripping and stumbling without subsequent striking against object, initial encounter; E78.5 Hyperlipidemia, unspecified; R73.03 Prediabetes; Z88.0 Allergy status to penicillin; Z88.2 Allergy status to sulfonamides; Y92.009 Unspecified place in unspecified non-institutional (private) residence as the place of occurrence of the external cause; R40.2412 Glasgow coma scale score 13-15, at arrival to emergency department; Z23 Encounter for immunization

== ENCOUNTER 2018-10-23 07:12 | Outpatient (CLI) | payer MEDICARE, BC | END 2018-10-23 07:13 | disposition home or self-care (01) | LOC: CARDIO 07:12 ==

== ENCOUNTER 2019-01-10 09:31 | Day surgery (SDC) | payer MEDICARE, BC ==
[2019-01-02 08:19] VITALS: BMI 25.7
[2019-01-10] MEDS ORDERED: Naloxone 0.4 mg/ml Inj (Adult) ONE (12:19)
[2019-01-10] MEDS ORDERED: Flumazenil 0.1 mg/ml Inj (5ml) IVP ONE (12:19)
[2019-01-10] MEDS ORDERED: Midazolam 2 MG/2 ML VIAL ONE (12:19)
[2019-01-10] MEDS ORDERED: Benzocaine/Butamben/Tetracai 14-2-2% TOP Spray TOP ONE (12:20)
[2019-01-10] MEDS ORDERED: Midazolam 2 MG/2 ML VIAL IV ONE (12:30)
[2019-01-10] MEDS ORDERED: Sodium Chloride 0.9% 1,000 ML IV SCH (13:00)
[2019-01-10 13:47] VITALS: PULSE 73
[2019-01-10 14:57] VITALS: BP 121/61; RESP 20; TEMP 98; O2SAT 98
--- NOTE | 2019-01-10 19:33 | CARD ---
APPROVED REPORT Date of service: 01/10/2019 EXAM: Transesophageal echocardiogram with color flow Doppler. INDICATION MR Aortic Valve LVOT Peak Zsulhwep233.0cm/sLVOT VTI62.70cm Mitral Valve E/A ratio0.0 TDI E/Lateral E'0.0E/Medial E'0.0 Tricuspid Valve TR Peak [id number]/sRAP [id number] Peak Gr.31mmHg [id number] Reason For Test : Evaluate MR/ IHSS PROCEDURE After obtaining informed consent, patient underwent transesophageal echo in the Echo Lab. Type of Sedation : Conscious Sedation Sedation was administered by Dr. Moreno. Sedation was achieved with Versed and Fentanyl 1 mg and 50 mcg intravenously. Echo enhancement indication: R/O Septal defect. Echo enhancement agent administered: Agitated Saline The MAGDALENO was performed without complications. Throughout the procedure, the blood pressure, pulse oximetry, cardiac rhythm, and rate were monitored. The patient tolerated the procedure without adverse effects. Recovery from conscious sedation was uneventful and vital signs were stable. LEFT VENTRICLE The left ventricle is normal size. There is mild to moderate concentric left ventricular hypertrophy. Proximal septal thickening is noted with IHSS Physiology and Peak resting gradient across LVOT 63 mmof Hg. The left ventricular function is normal.EF-65-70 There is normal LV segmental wall motion. Tissue Doppler imaging reveals mild left ventricular diastolic dysfunction. No left ventricle thrombus noted on this study. There is no ventricular septal defect visualized. There is no left ventricular aneurysm. There is no mass noted in the left ventricle. RIGHT VENTRICLE The right ventricle is normal size. There is normal right ventricular wall thickness. The right ventricular systolic function is normal. ATRIA The left atrium is severely dilated. The right atrium size is normal. The interatrial septum is intact with no evidence for an atrial septal defect. The interatrial septum bows toward right atrium consistent with elevated left atrial pressure. AORTIC VALVE The aortic valve is calcified and displays decreased opening. There is trace aortic regurgitation. There is mild to moderate valvular aortic stenosis. ANAHY -1.34 Cm2 by planimetry. There is no aortic valvular vegetation. MITRAL VALVE The mitral valve is mildly thickened. There is a Partial flail anterior leaflet, with redundant chordae. There is no mitral valve stenosis. Mitral regurgitation is severe. TRICUSPID VALVE The tricuspid valve leaflets display thickening. There is mild to moderate tricuspid regurgitation.RVSP-41 mmof HG There is no tricuspid valve prolapse or vegetation. There is no tricuspid valve stenosis. PULMONIC VALVE The pulmonary valve is normal in structure. There is trace pulmonic valvular regurgitation. There is no pulmonic valvular stenosis. GREAT VESSELS The aortic root is normal in size. The ascending aorta is normal in size. The pulmonary artery is normal. The IVC is normal in size and collapses >50% with inspiration. PERICARDIAL EFFUSION There is no pericardial effusion. There is no pleural effusion. <Conclusion> There is mild to moderate concentric left ventricular hypertrophy. Proximal septal thickening is noted with IHSS Physiology and Peak resting gradient across LVOT 63 mmof Hg. The left ventricular function is normal.EF-[id number] There is trace aortic regurgitation. There is mild to moderate valvular aortic stenosis. ANAHY -1.34 Cm2 by planimetry. There is a Partial flail anterior leaflet, with redundant chordae. Mitral regurgitation is severe. There is mild to moderate tricuspid regurgitation.RVSP-48 mmof Hg. Minimal flat plaque in Descending Aorta Veloctity in [place] =0.4 m/s. Recommendation: EVAl for Percutaneous Alcohol Septal Ablation.
== END 2019-01-10 15:00 | disposition home or self-care (01) ==
LOC: TEE 09:31
PROVIDERS: ATTEND Internal Medicine Cardiovascular Disease
DX: I08.3 Combined rheumatic disorders of mitral, aortic and tricuspid valves (principal); I42.1 Obstructive hypertrophic cardiomyopathy; I10 Essential (primary) hypertension; I25.10 Atherosclerotic heart disease of native coronary artery without angina pectoris; I25.2 Old myocardial infarction
CPT/HCPCS: 93312; J2250; J3010; J7030